=== PATIENT | female | born 1995 | race Hispanic/Latino ===

== ENCOUNTER 2021-12-05 01:16 | Emergency (ER) | payer SELFPAY ==
[~2021-12-05] VITALS: Ht 149.9 cm; Wt 73.5 kg
[2021-12-05 02:21] VITALS: BP 125/84
[2021-12-05] MEDS ORDERED: IBUP-2088 PO (02:26)
[2021-12-05] MEDS ORDERED: PHEN-847 PO (02:26)
[2021-12-05] MEDS ORDERED: SULF1TAB42 PO (02:26)
[2021-12-05 02:28] LABS: APPEARANCE,URINE TURBID (CLEAR); BILIRUBIN,URINE NEGATIVE (NEGATIVE); COLOR,URINE YELLOW (YELLOW); GLUCOSE, URINE (UA) NEGATIVE (NEGATIVE); KETONES,URINE NEGATIVE (NEGATIVE); LEUKOCYTE ESTERASE ,URINE 500 Leu/uL (NEGATIVE); NITRATE,URINE NEGATIVE (NEGATIVE); PH,URINE 7.5 (5.0-8.0); PROTEIN,URINE 30 mg/dL (NEGATIVE); UROBILINOGEN,URINE 0.2 mg/dL (0.2-1.0)
[2021-12-05 02:37] LABS: BACTERIA,URINE FEW /HPF (None Seen); SQUAMOUS EPITHELIAL CELL,UR RARE /HPF (0-2); TRANSITIONAL EPI CELLS,URINE RARE /HPF (None Seen); WBC,URINE TNTC /HPF (0-1)
== END 2021-12-05 03:11 | disposition home or self-care (01) ==
LOC: EDH 01:16
DX: N39.0 Urinary tract infection, site not specified (principal); F17.200 Nicotine dependence, unspecified, uncomplicated
CPT/HCPCS: 81001; 87077; 87088; 87186

== ENCOUNTER 2021-12-08 01:50 | Emergency (ER) | payer SELFPAY ==
[~2021-12-08] VITALS: Ht 154.9 cm; Wt 72.6 kg
[~2021-12-08 01:50] MED LIST: IBUP-2088 PO; PHEN-847 PO; SULF1TAB42 PO
[2021-12-08 01:52] VITALS: BP 117/75
[2021-12-08] MEDS ORDERED: IBUPROFEN 800 MG TAB PO ONE (02:30)
[2021-12-08] MEDS ORDERED: CEFTRIAXONE 1G VIAL IM ONE (02:30)
[2021-12-08] MEDS ORDERED: CEPH500B PO (02:37)
[2021-12-08] MEDS ORDERED: DICL50TA9 PO (02:38)
== END 2021-12-08 02:55 | disposition home or self-care (01) ==
LOC: EDH 01:50
DX: N39.0 Urinary tract infection, site not specified (principal); F17.200 Nicotine dependence, unspecified, uncomplicated; Z98.890 Other specified postprocedural states
CPT/HCPCS: 99283; 96372; J0696